=== PATIENT | female | born 1980 | race Caucasian/White ===

== ENCOUNTER 2020-05-17 16:32 | Emergency (ER) | payer BC, OTHER ==
--- NOTE | 2020-05-17 18:00 | CT ---
CT CERVICAL SPINE WITH CORONAL AND SAGITTAL REFORMATIONS AND NO IV CONTRAST: HISTORY: neck pain FINDINGS: Degenerative changes are present most prominent at C4-5 level with disc osteophyte complex and uncove rtebral hypertrophic changes resulting in bilateral neural foraminal stenosis and central canal stenosis. There is impingement of the anterior spinal cord at this level. There is loss of cervical lordosis with reversal. No fracture, subluxation or facet malalignment is identified. No prevertebral soft tissue swelling is apparent. The visualized lung apices are unremarkable. IMPRESSION: Cervical spondylosis most prominent at C4-5 level.
== END 2020-05-17 18:52 | disposition home or self-care (01) ==
LOC: ERS 16:32
DX: M47.22 Other spondylosis with radiculopathy, cervical region (principal); Z79.899 Other long term (current) drug therapy; E03.9 Hypothyroidism, unspecified; I10 Essential (primary) hypertension
CPT/HCPCS: 72125

== ENCOUNTER 2020-05-22 08:45 | Outpatient (CLI) | payer BC ==
--- NOTE | 2020-05-22 09:52 | MRI ---
MRI Cervical spine without contrast: HISTORY: Neck pain and right arm weakness. Right shoulder pain which is progressively worsened. COMPARISON: None FINDINGS: The craniocervical junction is unremarkable. No significant cord signal abnormality. Paravertebral soft tissues have a normal appearance and normal signal intensity. There is straightening of normal cervical lordotic curvature. C1-2:No significant stenosis. C2-3: Small central disc protrusion which effaces the ventral subarachnoid space. This does not conta ct the spinal cord. Neural foramina are patent. C3-4: Mild central and left paracentral disc osteophyte complex which narrows the ventral subarachnoi d space. Mild facet degenerative changes are present. No significant neural foraminal narrowing is present. C4-5: Loss of intervertebral disc height. Broad-based disc osteophyte complex is present with promine nt central disc protrusion. This disc protrusion results in mass effect and deformity of the anterior aspect of the spinal cord with generalized narrowing of the central spinal canal at this lev el. Moderate to severe bilateral neural foraminal narrowing is present. C5-6: Broad-based disc osteophyte complex is present with small right central/paracentral disc protru pavan. This narrows the ventral subarachnoid space, and there is mass effect on the central aspect of the spinal cord. No significant neural foraminal narrowing is seen, but there is mild encroachment on the right neural foramen. C6-7: Mild disc osteophyte complex eccentrically greater on the left. This narrows the ventral subara chnoid space but does not contact spinal cord. Neural foramina are patent. There are subcentimeter increased T2-weighted signal intensity structures seen in each neural foramen likely related to dilat ed nerve root sleeves. C7-T1: Small left paracentral disc protrusion is present which results in effacement of the left ante rolateral aspect of the ventral subarachnoid space. Neural foramina are patent. Subcentimeter increased T2-weighted signal intensity structures are seen in each neural foramen likely to dilated n erve root sleeves. IMPRESSION: Multilevel degenerative changes greatest at the C4-5 level where there is a prominent central disc pr otrusion resulting in mass effect and deformity of the spinal cord. There is also severe right and moderate to severe left-sided neural foraminal narrowing.
== END 2020-05-22 08:46 | disposition home or self-care (01) ==
LOC: TBSIIMAG 08:45
PROVIDERS: ATTEND Neurological Surgery
DX: M62.81 Muscle weakness (generalized) (principal); M50.21 Other cervical disc displacement, high cervical region; M47.812 Spondylosis without myelopathy or radiculopathy, cervical region; M48.02 Spinal stenosis, cervical region; G95.89 Other specified diseases of spinal cord
CPT/HCPCS: 72141